=== PATIENT | female | born 1935 | race Caucasian/White ===

== ENCOUNTER 2021-04-05 12:43 | Inpatient (IN) ==
[2021-04-05] MEDS ORDERED: SODIUM CHLORIDE 0.9% 500 ML IV STA (13:55)
[2021-04-05] MEDS ORDERED: ONDANSETRON 4 MG/2 ML VIAL IV STA (13:55)
[2021-04-05 14:35] LABS: Basophils % 0.4 % (0.0-0.8); Eosinophils % 0.2 % (0.00-10.9); Hematocrit 44.5 VOL% (35.7-47.0); Hemoglobin 14.7 GM/DL (12.0-16.0); Immature Granulocytes % 0.4 %; Immature Granulocytes Absolute 0.03 #; Lymphocytes # 0.5 10*3/uL (1.4-4.0); Lymphocytes % 6.2 % (21.3-54.2); Mean Corpuscular Volume 90.3 FL (87-102); Mean Platelet Volume 11.4 FL (9.6-12.0); Monocytes % 6.7 % (1.7-12.7); Neutrophils % 86.1 % (38.7-73.9); Platelet Count 189 T/CUMM (130-400); Red Blood Count 4.93 MC/CUMM (3.8-5.5); Red Cell Distribution Width 14.5 % (9.3-17.3); White Blood Count 8.5 T/CUMM (4-12)
[2021-04-05 14:37] LABS: Bacteria,Urine Moderate /HPF (Few); Bilirubin,Urine Negative (Negative); Blood, Urine Small mg/dL (Negative); Glucose,Urine (UA) Negative (Negative); Ketones,Urine 5 mg/dL (Negative); Mucus,Urine Occasional /LPF (Occasional); Nitrite,Urine Negative (Negative); Protein,Urine 30 MG/DL; RBC,Urine 7 /HPF (0-4); Squamous Epithelial Cell,Urine Occasional /HPF (0-10); Urine Appearance CLOUDY (Clear); Urine Color Amber (Yellow); Urine Specific Gravity 1.016 (1.001-1.035); Urine Urobilinogen < 2.0 EU/DL (<2.0)
[2021-04-05 14:49] LABS: Albumin 3.8 G/DL (3.4-5.0); Bilirubin,Total 0.8 MG/DL (0.20-1.00); Calcium 9.5 MG/DL (8.5-10.1); Osmolality,Calculated 267.4 MOS/KG (273-304); Potassium 5.4 MMOL/L (3.5-5.1); Total Protein 6.8 G/DL (6.4-8.2)
[2021-04-05] MEDS ORDERED: HEPARIN LOCK FLUSH 500 UNIT/5 ML SYRINGE IV ONE (14:57)
[2021-04-05] MEDS ORDERED: PIPERACILLIN/TAZOBACTAM 3,375 MG in SODIUM CHLORIDE 0.9% 100 ML IV STA (15:04)
[2021-04-05] MEDS ORDERED: ALBUTEROL/IPRATROPIUM 3 ML NEB RESP TX PRN (15:42)
[2021-04-05] MEDS ORDERED: ACETAMINOPHEN 325 MG TABLET PO PRN (15:42)
[2021-04-05] MEDS ORDERED: ONDANSETRON 4 MG/2 ML VIAL IV PRN (15:42)
[2021-04-05] MEDS ORDERED: MORPHINE 2 MG/1 ML SYRINGE IV STA (15:43)
[2021-04-05] MEDS ORDERED: KETOROLAC 30 MG/1 ML VIAL IV PRN (15:49)
[2021-04-05] MEDS ORDERED: DEXTROSE 5% NACL 0.45% 1,000 ML IV SCH (16:00)
[2021-04-05] MEDS: DEXTROSE 5% NACL 0.9% 1,000 ML IV SCH (17:25)
[2021-04-05] MEDS: PANTOPRAZOLE 40 MG VIAL IV SCH (21:00)
[2021-04-06] MEDS: PIPERACILLIN/TAZOBACTAM 3,375 MG in SODIUM CHLORIDE 0.9% 100 ML IV SCH ×3 (00:50→16:26)
[2021-04-06 06:06] LABS: Basophils % 0.7 % (0.0-0.8); Eosinophils # 0.2 10*3/uL (0.0-0.87); Hemoglobin 13.2 GM/DL (12.0-16.0); Immature Granulocytes % 0.3 %; Immature Granulocytes Absolute 0.02 #; Lymphocytes # 0.7 10*3/uL (1.4-4.0); Lymphocytes % 12.9 % (21.3-54.2); Mean Corpuscular HGB Conc 31.4 GM/DL (32-36); Mean Corpuscular Volume 94.6 FL (87-102); Mean Platelet Volume 9.6 FL (9.6-12.0); Monocytes % 9.3 % (1.7-12.7); Neutrophils % 73.8 % (38.7-73.9); Platelet Count 167 T/CUMM (130-400); Red Blood Count 4.44 MC/CUMM (3.8-5.5); Red Cell Distribution Width 14.4 % (9.3-17.3); White Blood Count 5.7 T/CUMM (4-12)
[2021-04-06 06:12] LABS: Calcium 8.1 MG/DL (8.5-10.1); Osmolality,Calculated 277.5 MOS/KG (273-304); Potassium 3.7 MMOL/L (3.5-5.1)
[2021-04-06] MEDS: LEVOTHYROXINE 100 MCG VIAL IV SCH (06:15)
[2021-04-06] MEDS: PANTOPRAZOLE 40 MG VIAL IV SCH ×2 (08:54→21:24)
[2021-04-06] MEDS ORDERED: PANTOPRAZOLE 40 MG VIAL IV SCH (09:00)
[2021-04-06] MEDS: ENOXAPARIN 40 MG/0.4 ML SYRINGE SUBCUT SCH (11:40)
[2021-04-06] MEDS: DEXTROSE 5% NACL 0.9% 1,000 ML IV SCH ×2 (12:15→17:52)
[2021-04-07] MEDS: PIPERACILLIN/TAZOBACTAM 3,375 MG in SODIUM CHLORIDE 0.9% 100 ML IV SCH ×3 (00:29→15:51)
[2021-04-07] MEDS: DEXTROSE 5% NACL 0.9% 1,000 ML IV SCH ×2 (05:59→15:51)
[2021-04-07] MEDS: LEVOTHYROXINE 100 MCG VIAL IV SCH (05:59)
[2021-04-07] MEDS ORDERED: BISACODYL 10 MG SUPP RECTAL ONE (07:30)
[2021-04-07] MEDS: PANTOPRAZOLE 40 MG VIAL IV SCH ×2 (08:43→21:36)
[2021-04-07] MEDS: ENOXAPARIN 40 MG/0.4 ML SYRINGE SUBCUT SCH (10:20)
[2021-04-07] MEDS: cefTRIAXone 1,000 MG in SODIUM CHLORIDE 0.9% 100 ML IV SCH (17:42)
[2021-04-08] MEDS: LEVOTHYROXINE 100 MCG VIAL IV SCH (06:04)
[2021-04-08] MEDS: DEXTROSE 5% NACL 0.9% 1,000 ML IV SCH ×2 (06:04→11:13)
[2021-04-08] MEDS: PANTOPRAZOLE 40 MG VIAL IV SCH (08:44)
[2021-04-08] MEDS ORDERED: BISACODYL 10 MG SUPP RECTAL ONE (10:02)
[2021-04-08] MEDS: ENOXAPARIN 40 MG/0.4 ML SYRINGE SUBCUT SCH (11:13)
[2021-04-08] MEDS: POLYETHYLENE GLYCOL POWDER 17 GM PACK PO SCH (11:13)
[2021-04-08] MEDS ORDERED: ZINC OXIDE PASTE 113 GM TUBE TOP PRN (14:50)
[2021-04-08] MEDS ORDERED: MENTHOL/ZINC OXIDE OINT 71 GM JAR TOP PRN (14:52)
[2021-04-08] MEDS: cefTRIAXone 1,000 MG in SODIUM CHLORIDE 0.9% 100 ML IV SCH (16:40)
[2021-04-09] MEDS: DEXTROSE 5% NACL 0.9% 1,000 ML IV SCH ×3 (04:04→18:09)
[2021-04-09] MEDS: LEVOTHYROXINE 100 MCG VIAL IV SCH (06:09)
[2021-04-09 07:42] LABS: Calcium 7.9 MG/DL (8.5-10.1); Osmolality,Calculated 286.7 MOS/KG (273-304); Potassium 2.7 MMOL/L (3.5-5.1)
[2021-04-09] MEDS ORDERED: MAGNESIUM SULF RIDER 4 GM/100 ML PREMIX IV PRN (08:03)
[2021-04-09] MEDS: POLYETHYLENE GLYCOL POWDER 17 GM PACK PO SCH (09:44)
[2021-04-09] MEDS: MAGNESIUM SULF RIDER 2 GM/50 ML PREMIX IV PRN (09:44)
[2021-04-09] MEDS: POTASSIUM CHLORIDE 20 MEQ TABLET PO PRN (09:44)
[2021-04-09] MEDS: PANTOPRAZOLE 40 MG TABLET PO SCH (09:44)
[2021-04-09] MEDS: ENOXAPARIN 40 MG/0.4 ML SYRINGE SUBCUT SCH (09:44)
[2021-04-09] MEDS: cefTRIAXone 1,000 MG in SODIUM CHLORIDE 0.9% 100 ML IV SCH (17:30)
[2021-04-09] MEDS: METOCLOPRAMIDE 10 MG/2 ML VIAL IV SCH (20:05)
[2021-04-09] MEDS ORDERED: METOCLOPRAMIDE 10 MG/2 ML VIAL IV SCH (22:00)
[2021-04-10] MEDS: DEXTROSE 5% NACL 0.9% 1,000 ML IV SCH ×2 (03:08→11:29)
[2021-04-10] MEDS: METOCLOPRAMIDE 10 MG/2 ML VIAL IV SCH ×3 (04:26→21:01)
[2021-04-10] MEDS: LEVOTHYROXINE 100 MCG VIAL IV SCH (05:53)
[2021-04-10 07:06] LABS: Calcium 7.8 MG/DL (8.5-10.1); Osmolality,Calculated 280.1 MOS/KG (273-304); Potassium 3.3 MMOL/L (3.5-5.1)
[2021-04-10 07:52] LABS: Basophils % 0.8 % (0.0-0.8); Eosinophils # 0.2 10*3/uL (0.0-0.87); Eosinophils % 3.8 % (0.00-10.9); Hematocrit 40.8 VOL% (35.7-47.0); Hemoglobin 12.7 GM/DL (12.0-16.0); Immature Granulocytes % 0.4 %; Immature Granulocytes Absolute 0.02 #; Lymphocytes # 0.9 10*3/uL (1.4-4.0); Lymphocytes % 19.5 % (21.3-54.2); Mean Corpuscular HGB Conc 31.1 GM/DL (32-36); Mean Corpuscular Volume 92.9 FL (87-102); Mean Platelet Volume 9.4 FL (9.6-12.0); Monocytes % 6.3 % (1.7-12.7); Neutrophils % 69.2 % (38.7-73.9); Platelet Count 143 T/CUMM (130-400); Red Blood Count 4.39 MC/CUMM (3.8-5.5); Red Cell Distribution Width 14.3 % (9.3-17.3); White Blood Count 4.7 T/CUMM (4-12)
[2021-04-10] MEDS: POLYETHYLENE GLYCOL POWDER 17 GM PACK PO SCH (09:01)
[2021-04-10] MEDS: PANTOPRAZOLE 40 MG TABLET PO SCH (09:01)
[2021-04-10] MEDS: ENOXAPARIN 40 MG/0.4 ML SYRINGE SUBCUT SCH (09:01)
[2021-04-10] MEDS: POTASSIUM CHLORIDE 20 MEQ TABLET PO PRN ×3 (09:01→14:08)
[2021-04-10] MEDS ORDERED: POTASSIUM CHLORIDE 10 MEQ TABLET PO ONE (14:04)
[2021-04-10] MEDS: SIMETHICONE CHEW 80 MG TABLET PO PRN ×2 (14:08→21:12)
[2021-04-10] MEDS: cefTRIAXone 1,000 MG in SODIUM CHLORIDE 0.9% 100 ML IV SCH (16:55)
[2021-04-11] MEDS: METOCLOPRAMIDE 10 MG/2 ML VIAL IV SCH ×3 (05:23→20:59)
[2021-04-11] MEDS: LEVOTHYROXINE 100 MCG VIAL IV SCH (05:39)
[2021-04-11 05:59] LABS: Basophils % 0.8 % (0.0-0.8); Eosinophils # 0.2 10*3/uL (0.0-0.87); Eosinophils % 4.9 % (0.00-10.9); Hematocrit 35.5 VOL% (35.7-47.0); Hemoglobin 11.6 GM/DL (12.0-16.0); Immature Granulocytes % 0.5 %; Immature Granulocytes Absolute 0.02 #; Lymphocytes # 0.7 10*3/uL (1.4-4.0); Lymphocytes % 19.1 % (21.3-54.2); Mean Corpuscular HGB Conc 32.7 GM/DL (32-36); Mean Platelet Volume 10.2 FL (9.6-12.0); Monocytes % 7.5 % (1.7-12.7); Neutrophils % 67.2 % (38.7-73.9); Platelet Count 118 T/CUMM (130-400); Red Blood Count 3.86 MC/CUMM (3.8-5.5); Red Cell Distribution Width 14.5 % (9.3-17.3); White Blood Count 3.9 T/CUMM (4-12)
[2021-04-11 06:44] LABS: Albumin 2.5 G/DL (3.4-5.0); Bilirubin,Total 0.8 MG/DL (0.20-1.00); Calcium 7.7 MG/DL (8.5-10.1); Osmolality,Calculated 286.6 MOS/KG (273-304); Potassium 3.3 MMOL/L (3.5-5.1); Thyroid Stimulating Hormone 14.1 uIU/ml (0.358-3.74); Total Protein 4.5 G/DL (6.4-8.2)
[2021-04-11] MEDS ORDERED: POTASSIUM CHLORIDE RIDER 10 MEQ/100 ML PREMIX IV PRN (06:55)
[2021-04-11] MEDS: POTASSIUM CHLORIDE 20 MEQ TABLET PO PRN (09:43)
[2021-04-11] MEDS: SIMETHICONE CHEW 80 MG TABLET PO PRN ×3 (09:43→18:10)
[2021-04-11] MEDS: PANTOPRAZOLE 40 MG TABLET PO SCH (09:43)
[2021-04-11] MEDS: POLYETHYLENE GLYCOL POWDER 17 GM PACK PO SCH (09:43)
[2021-04-11] MEDS: ENOXAPARIN 40 MG/0.4 ML SYRINGE SUBCUT SCH (09:44)
[2021-04-11] MEDS: DEXTROSE 5% NACL 0.9% 1,000 ML IV SCH ×3 (09:44→18:26)
[2021-04-11] MEDS: MAGNESIUM SULF RIDER 2 GM/50 ML PREMIX IV PRN (09:49)
[2021-04-11] MEDS ORDERED: MAGNESIUM SULF RIDER 2 GM/50 ML PREMIX IV ONE (10:00)
[2021-04-11] MEDS ORDERED: POTASSIUM CHLORIDE 20 MEQ TABLET PO ONE (11:00)
[2021-04-11] MEDS: POTASSIUM CHLORIDE 20 MEQ TABLET PO SCH (17:06)
[2021-04-11] MEDS: cefTRIAXone 1,000 MG in SODIUM CHLORIDE 0.9% 100 ML IV SCH (17:27)
[2021-04-11] MEDS ORDERED: GABAPENTIN 300 MG CAPSULE PO SCH (21:00)
[2021-04-12] MEDS: METOCLOPRAMIDE 10 MG/2 ML VIAL IV SCH ×2 (05:15→11:32)
[2021-04-12] MEDS: DEXTROSE 5% NACL 0.9% 1,000 ML IV SCH (05:50)
[2021-04-12] MEDS ORDERED: LEVOTHYROXINE 125 MCG TABLET PO SCH (06:30)
[2021-04-12 08:08] LABS: Calcium 7.9 MG/DL (8.5-10.1); Potassium 3.9 MMOL/L (3.5-5.1)
[2021-04-12] MEDS ORDERED: LEVOTHYROXINE 112 MCG TABLET PO SCH (09:00)
[2021-04-12] MEDS: ENOXAPARIN 40 MG/0.4 ML SYRINGE SUBCUT SCH (09:59)
[2021-04-12] MEDS: POLYETHYLENE GLYCOL POWDER 17 GM PACK PO SCH (09:59)
[2021-04-12] MEDS: PANTOPRAZOLE 40 MG TABLET PO SCH (09:59)
[2021-04-12] MEDS: POTASSIUM CHLORIDE 20 MEQ TABLET PO SCH (09:59)
[2021-04-12 12:17] VITALS: BP 146/57
[2021-04-12] MEDS: SIMETHICONE CHEW 80 MG TABLET PO PRN (12:28)
== END 2021-04-12 13:00 | disposition home or self-care (01) | DRG 389 ==
LOC: N.ED 12:43 → N.EDINP 15:42 → N.3E 19:00
PROVIDERS: ADMIT Surgery; ATTEND Surgery